=== PATIENT | female | born 1995 | race Caucasian/White ===

== ENCOUNTER 2022-03-04 02:59 | Emergency (ER) | payer MEDICAID ==
[~2022-03-04] VITALS: Ht 167.6 cm; Wt 68.0 kg
[2022-03-04 03:01] VITALS: BP 100/77
[2022-03-04] MEDS ORDERED: MAGNESIUM/ALUMINUM HYDROXIDE/SIMETHICONE 30ML UDC PO ONE (04:15)
[2022-03-04] MEDS ORDERED: VISCOUS LIDOCAINE 2% 15 ML UDC MM PRN (04:15)
[2022-03-04] MEDS ORDERED: FAMOTIDINE 20MG TABLET PO ONE (04:15)
[2022-03-04 04:34] LABS: BASOPHILS % 0.3 % (0.0-2.0); EOSINOPHILS % 1.3 % (0.0-5.0); HEMATOCRIT. 39.7 % (36.0-48.0); HEMOGLOBIN. 13.4 g/dL (12.0-16.0); LYMPHOCYTES % 21.6 % (20.0-50.0); MEAN CORPUSCULAR HEMOGLOBIN 33.2 pg (28.0-32.0); MEAN CORPUSCULAR VOLUME 98.6 fL (81.0-99.0); MEAN PLATELET VOLUME 6.8 fl (7.4-10.4); MONOCYTES % 7.3 % (2.0-8.0); NEUTROPHILS % 69.5 % (40.0-76.0); PLATELET 435 x1000/uL (130-400); RED BLOOD CELL COUNT 4.03 mill/uL (4.2-5.4); RED CELL DISTRIBUTION WIDTH 12.9 % (11.6-14.6)
[2022-03-04 04:52] LABS: CHLORIDE 107 mEq/L (98-107)
[2022-03-04 06:25] LABS: CLARITY URINE CLEAR (CLEAR); COLOR URINE DARK YELLOW (YELLOW); KETONES URINE 4+ (NEGATIVE); LEUKOCYTE ESTERASE URINE NEGATIVE (NEGATIVE); NITRITE URINE NEGATIVE (NEGATIVE); OCCULT BLOOD URINE 1+ (NEGATIVE); PH URINE 5.5 (4.5-8.0); PROTEIN URINE TRACE (NEGATIVE); SPECIFIC GRAVITY URINE 1.037 (1.005-1.030)
[2022-03-04] MEDS ORDERED: FAMO-135 MT (06:28)
[2022-03-04] MEDS ORDERED: MAG355OR21 MT (06:28)
== END 2022-03-04 06:50 | disposition home or self-care (01) ==
LOC: ER 02:59
DX: K29.70 Gastritis, unspecified, without bleeding (principal); I10 Essential (primary) hypertension
CPT/HCPCS: 36415; 80053; 81003; 85025; 99284

== ENCOUNTER 2023-06-28 10:23 | Emergency (ER) | payer MEDICAID ==
[~2023-06-28] VITALS: Ht 162.6 cm; Wt 48.0 kg
[~2023-06-28 10:23] MED LIST: FAMO-135 MT; MAG355OR21 MT
[2023-06-28 10:31] VITALS: O2SAT 99
[2023-06-28] MEDS ORDERED: trazodone (10:42)
[2023-06-28 11:00] VITALS: TEMP 98.4
[2023-06-28] MEDS ORDERED: ACETAMINOPHEN 325MG TABLET PO ONE (11:00)
[2023-06-28] MEDS ORDERED: SODIUM CHLORIDE 0.9% 1,000 ML IV ONE (11:00)
[2023-06-28 11:33] LABS: BASOPHILS % 0.6 % (0.0-2.0); EOSINOPHILS % 2.5 % (0.0-5.0); HEMOGLOBIN. 12.5 g/dL (12.0-16.0); MEAN CORPUSCULAR HEMOGLOBIN 31.5 pg (28.0-32.0); MEAN CORPUSCULAR HGB CONC 33.8 g/dL (31.0-37.0); MEAN CORPUSCULAR VOLUME 93.1 fL (81.0-99.0); MEAN PLATELET VOLUME 6.8 fl (7.4-10.4); MONOCYTES % 6.4 % (2.0-8.0); NEUTROPHILS % 70.5 % (40.0-76.0); PLATELET 511 x1000/uL (130-400); RED BLOOD CELL COUNT 3.98 mill/uL (4.2-5.4); RED CELL DISTRIBUTION WIDTH 12.6 % (11.6-14.6); WHITE BLOOD COUNT 8.5 x1000/uL (4.5-11.0)
[2023-06-28 11:39] LABS: CHLORIDE 109 mEq/L (98-107); INDEX HEMOLYSI 1 (1-3); INDEX ICTERIC 1 (1-4); INDEX LIPEMIC 1 (1-3); SODIUM 139 mEq/L (136-145)
[2023-06-28 11:40] LABS: HCG SCREEN NEGATIVE
[2023-06-28 11:47] LABS: ALANINE AMINOTRANSFERASE 25 IU/L (13-61); ALBUMIN 3.5 g/dL (3.4-5.0); ASPARTATE AMINOTRANSFERASE 11 IU/L (15-37); BILIRUBIN TOTAL 0.2 mg/dL (0.1-1.0); CALCIUM 8.9 mg/dL (8.5-10.1); CARBON DIOXIDE 28 mEq/L (21-32); CREATININE 0.7 mg/dL (0.6-1.3); GLUCOSE 86 mg/dL (70-105); PROTEIN TOTAL 6.7 g/dL (6.0-8.3); UREA NITROGEN BLOOD 15 mg/dL (7-21)
[2023-06-28 11:48] LABS: TROPONIN I HIGH SENSITIVITY < 4 ng/L (<54)
[2023-06-28 15:05] VITALS: BP 122/89; PULSE 71; RESP 16
== END 2023-06-28 17:03 | disposition home or self-care (01) ==
LOC: ER 10:23
DX: R55 Syncope and collapse (principal); S09.90XA Unspecified injury of head, initial encounter; I10 Essential (primary) hypertension; Z88.0 Allergy status to penicillin; X58.XXXA Exposure to other specified factors, initial encounter; Y93.89 Activity, other specified; Y92.89 Other specified places as the place of occurrence of the external cause; Y99.8 Other external cause status
CPT/HCPCS: 80053; 84703; 85025; 84484; 36415; 70450; 93005; 99284; J7030; Z7610; A4315